=== PATIENT | female | born 2005 | race Caucasian/White ===

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

== ENCOUNTER 2024-01-31 16:42 | Emergency (ER) | payer MEDICAID ==
[~2024-01-31] VITALS: Ht 172.7 cm; Wt 79.0 kg
[~2024-01-31 16:42] MED LIST: CEPH500C2 MT
[2024-01-31 16:44] VITALS: O2SAT 97
[2024-01-31] MEDS: SULFAMETHOXAZOLE/TRIMETHOPRIM 800/160MG TABLET PO STA (20:40)
[2024-01-31] MEDS: ACETAMINOPHEN 325MG TABLET PO ONE (20:41)
[2024-01-31] MEDS: LIDOCAINE HCL/EPINEPHRINE 1%-EPI 1:100,000 20ML VIAL INFIL ONE (20:41)
[2024-01-31] MEDS: IBUPROFEN 400MG TABLET PO ONE (20:41)
[2024-01-31] MEDS: CEPHALEXIN 250MG CAPSULE PO STA (20:41)
[2024-01-31] MEDS ORDERED: CEPH500T MT (21:22)
[2024-01-31] MEDS ORDERED: SULF1TAB48 MT (21:22)
[2024-01-31 21:38] VITALS: BP 129/71; PULSE 80; RESP 18; TEMP 36.72516; O2SAT 98
== END 2024-01-31 21:43 | disposition home or self-care (01) ==
LOC: ER 16:42
DX: L02.214 Cutaneous abscess of groin (principal)
CPT/HCPCS: 99284; 10060; J3490